=== PATIENT | female | born 1975 | race Hispanic/Latino ===

== ENCOUNTER 2022-10-11 02:27 | Emergency (ER) | payer BC ==
[~2022-10-11] VITALS: Ht 149.9 cm; Wt 81.6 kg
[2022-10-11] MEDS ORDERED: LIDOCAINE VISC 2% SOLN 15 ML UDC ONE (02:52)
[2022-10-11] MEDS ORDERED: VALACYCLOVIR1000 MG PO ×2 (02:54→03:09)
== END 2022-10-11 03:09 | disposition home or self-care (01) ==
LOC: FSED 02:43
DX: S00.521A Blister (nonthermal) of lip, initial encounter (principal); R52 Pain, unspecified
CPT/HCPCS: 99283

== ENCOUNTER 2024-09-14 21:41 | Emergency (ER) | payer BC ==
[~2024-09-14] VITALS: Ht 149.9 cm; Wt 85.3 kg
[~2024-09-14 21:41] MED LIST: VALACYCLOVIR1000 MG PO
[2024-09-14 21:44] VITALS: PULSE 81; RESP 19; TEMP 98.5
[2024-09-14 21:59] LABS: BASOPHILS % 0.5 % (0.0-1.0); EOSINOPHILS # (AUTO) 0.1 (0.0-0.4); EOSINOPHILS % 2.2 % (0.0-6.0); HEMATOCRIT 37.8 % (34.2-44.1); LYMPHOCYTES # (AUTO) 2.1 (1.0-3.2); LYMPHOCYTES % 35.4 % (18.0-39.1); MEAN CORPUSCULAR HEMOGLOBIN 29.7 pg (28-32); MEAN CORPUSCULAR HGB CONC 34.4 g/dL (31-35); MEAN CORPUSCULAR VOLUME 86.5 fL (81-99); MONOCYTES # (AUTO) 0.4 (0.2-0.8); MONOCYTES % 7.1 % (4.4-11.3); NEUTROPHILS # (AUTO) 3.2 (2.1-6.9); NEUTROPHILS % 54.8 % (38.7-80.0); PLATELET COUNT 389 x10e3/uL (140-360); RED BLOOD COUNT 4.37 x10e6/uL (3.6-5.1); RED CELL DISTRIBUTION WIDTH 12.4 % (11.7-14.4); WHITE BLOOD COUNT 5.91 x10e3/uL (4.8-10.8)
[2024-09-14] MEDS: KETOROLAC TROMETHAMINE 30 MG/ML VIAL IV STA (22:20)
[2024-09-14 22:25] LABS: BILIRUBIN,URINE NEGATIVE (NEGATIVE); CLARITY,URINE CLEAR (CLEAR); COLOR,URINE YELLOW (YELLOW); GLUCOSE, URINE NEGATIVE (NEGATIVE); KETONES,URINE NEGATIVE (NEGATIVE); LEUKOCYTE ESTERASE ,URINE NEGATIVE (NEGATIVE); NITRITE,URINE NEGATIVE (NEGATIVE); PH,URINE 7 (5 - 7); PROTEIN,URINE DIPSTICK NEGATIVE (NEGATIVE); URINE UROBILINOGEN 0.2 mg/dL (0.2 - 1)
[2024-09-14 22:26] LABS: BACTERIA,URINE FEW /HPF; RBC,URINE 0-5 /HPF (0-5)
[2024-09-14 22:33] LABS: ALBUMIN/GLOBULIN RATIO 1.2 (0.8-2.0); ANION GAP 14.9 mmol/L (8-16); BILIRUBIN,TOTAL 0.6 mg/dL (0.2-1.2); CALCIUM 9.7 mg/dL (8.4-10.2); CREATININE, SERUM 0.66 mg/dL (0.57-1.11); POTASSIUM 3.9 mmol/L (3.5-5.1); TOTAL PROTEIN 7.3 g/dL (6.5-8.1)
[2024-09-14 22:39] LABS: EPITHELIAL CELLS,URINE MODERATE /LPF; RENAL EPITHELIAL CELLS,URINE FEW; TRANSITIONAL EPI CELLS,URINE MODERATE
[2024-09-14 22:39] LABS: TROPONIN I 0.003 ng/mL (0-0.300)
[2024-09-14] MEDS ORDERED: CEFDINIR300 MG PO (23:08)
[2024-09-14] MEDS ORDERED: ONDANSETRON ODT4 MG SL (23:08)
[2024-09-14 23:16] VITALS: BP 104/61; PULSE 75; RESP 17; TEMP 97.9; O2SAT 99
== END 2024-09-14 23:18 | disposition home or self-care (01) ==
LOC: ER 21:54
DX: R10.12 Left upper quadrant pain (principal); N39.0 Urinary tract infection, site not specified; R07.1 Chest pain on breathing; F17.210 Nicotine dependence, cigarettes, uncomplicated
CPT/HCPCS: 36415; 71046; 80053; 81001; 83690; 84484; 85025; 93005; 99284; J1885

== ENCOUNTER 2024-11-20 23:40 | Emergency (ER) | payer BC ==
[~2024-11-20] VITALS: Ht 147.3 cm; Wt 83.5 kg
[~2024-11-20 23:40] MED LIST changes: +AZITHROMYCIN250 MG PO; +CEFDINIR300 MG PO; +DICYCLOMINE HCL20 MG PO; +ONDANSETRON ODT4 MG SL; +PANTOPRAZOLE SO40 MG PO
[2024-11-21] MEDS: KETOROLAC TROMETHAMINE 60 MG/2 ML VIAL IM ONE (00:43)
[2024-11-21 00:48] VITALS: PULSE 72; RESP 16; TEMP 98.4
[2024-11-21 00:50] VITALS: BP 98/58; PULSE 72; RESP 16; TEMP 98.4; O2SAT 98
== END 2024-11-21 00:53 | disposition home or self-care (01) ==
LOC: FSED 23:44
DX: M26.601 Right temporomandibular joint disorder, unspecified (principal); I10 Essential (primary) hypertension; E78.5 Hyperlipidemia, unspecified; E66.9 Obesity, unspecified; R94.31 Abnormal electrocardiogram [ECG] [EKG]
CPT/HCPCS: 93005; 99284; J1885